=== PATIENT | female | born 1985 | race Caucasian/White ===

== ENCOUNTER 2017-05-05 11:41 | Inpatient (IN) ==
[2017-05-05] MEDS ORDERED: METOCLOPRAMIDE 10 MG/2 ML VIAL IM STA (14:13)
[2017-05-05] MEDS ORDERED: DICYCLOMINE 20 MG/2 ML AMP IM ONE ×3 (14:13→14:32)
[2017-05-05 14:14] LABS: Apearance,Urine CLEAR (Clear); Bilirubin,Urine Negative (Negative); Blood, Urine Negative (Negative); Glucose,Urine (UA) Negative (Negative); Hyaline Casts,Urine 1 /LPF (0-3); Ketones,Urine Negative (Negative); Mucus,Urine Few /LPF (Occasional); Nitrite,Urine Negative (Negative); Protein,Urine Negative; RBC,Urine 1 /HPF (0-4); Squamous Epithelial Cell,Urine Occasional /HPF (0-10); Urine Color Yellow (Yellow); Urine Specific Gravity 1.024 (1.001-1.035); Urine Urobilinogen < 2.0 EU/DL (0.2-1.0)
[2017-05-05] MEDS ORDERED: METOCLOPRAMIDE 10 MG/2 ML VIAL ONE (14:31)
[2017-05-05 14:41] LABS: Basophils % 0.1 % (0.0-0.8); Eosinophils # 0.2 10*3/uL (0.0-0.87); Hematocrit 40.5 VOL% (35.7-47.0); Hemoglobin 13.8 GM/DL (12.0-16.0); Immature Granulocytes % 0.4 %; Immature Granulocytes Absolute 0.06 #; Lymphocytes # 1.3 10*3/uL (1.4-4.0); Lymphocytes % 8.4 % (21.3-54.2); Mean Corpuscular HGB Conc 34.1 GM/DL (32-36); Mean Corpuscular Hemoglobin 31 PG (27-34); Mean Corpuscular Volume 91.6 FL (87-102); Mean Platelet Volume 9.8 FL (9.6-12.0); Monocytes # 0.9 10*3/uL (0.11-0.8); Neutrophils # 12.6 10*3/uL (1.4-7.4); Neutrophils % 84.1 % (38.7-73.9); Platelet Count 229 T/CUMM (130-400); Red Blood Count 4.42 MC/CUMM (3.8-5.5); Red Cell Distribution Width 13.2 % (9.3-17.3)
[2017-05-05 14:57] LABS: Calcium 9.1 MG/DL (8.5-10.1); Osmolality,Calculated 277.4 MOS/KG (273-304); Potassium 3.9 MMOL/L (3.5-5.1)
[2017-05-05] MEDS ORDERED: metroNIDAZOLE INJ 500 MG in PREMIX 1 EACH IV STA (17:14)
[2017-05-05] MEDS ORDERED: cefTRIAXone 1,000 MG in SODIUM CHLORIDE 0.9% 100 ML IV STA (17:14)
[2017-05-05] MEDS ORDERED: SODIUM CHLORIDE 0.9% 1,000 ML IV STA (17:19)
[2017-05-05] MEDS ORDERED: HYDROmorphone 2 MG/1 ML VIAL IV STA (17:19)
[2017-05-05] MEDS ORDERED: cefTRIAXone 1,000 MG VIAL ONE (17:19)
[2017-05-05] MEDS ORDERED: metroNIDAZOLE 500 MG/100 ML PREMIX IV ONE (17:32)
[2017-05-05] MEDS ORDERED: ALUMINUM/MAGNES/SIMETH MAX STR 30 ML UDCUP PO PRN (17:44)
[2017-05-05] MEDS ORDERED: AZTREONAM 1,000 MG in SODIUM CHLORIDE 0.9% 100 ML IV SCH (18:00)
[2017-05-05] MEDS ORDERED: ONDANSETRON 4 MG/2 ML VIAL ONE (18:41)
[2017-05-05] MEDS ORDERED: HYDROmorphone 2 MG/1 ML VIAL ONE (18:41)
[2017-05-05] MEDS: ONDANSETRON 4 MG/2 ML VIAL IV PRN (18:47)
[2017-05-05] MEDS: metroNIDAZOLE INJ 500 MG in PREMIX 1 EACH IV SCH ×2 (19:56→23:00)
[2017-05-05] MEDS: HYDROmorphone 2 MG/1 ML VIAL IV PRN (21:35)
[2017-05-05] MEDS: DOCUSATE SODIUM 100 MG CAPSULE PO SCH (21:53)
[2017-05-05] MEDS: AZTREONAM 1,000 MG in SYRINGE 1 EACH IV SCH (21:53)
[2017-05-05] MEDS: DEXTROSE 5% NACL 0.45% 1,000 ML IV SCH (21:54)
[2017-05-05] MEDS ORDERED: SODIUM CHLORIDE 0.9% 50 ML IV ONE (22:52)
[2017-05-05] MEDS: cefOXitin 2,000 MG in SYRINGE 1 EACH IV SCH (23:35)
[2017-05-06] MEDS: oxyCODONE/ACETAMINOPHEN 5-325 MG TABLET PO PRN ×2 (00:01→18:04)
[2017-05-06] MEDS ORDERED: SODIUM CHLORIDE 0.9% 50 ML IV ONE (04:41)
[2017-05-06 09:54] LABS: Albumin 3.2 G/DL (3.4-5.0); Bilirubin,Total 0.9 MG/DL (0.2-1.0); Calcium 8.6 MG/DL (8.5-10.1); Osmolality,Calculated 270.8 MOS/KG (273-304); Potassium 3.7 MMOL/L (3.5-5.1); Total Protein 6.3 G/DL (6.4-8.3)
[2017-05-06 10:01] LABS: Basophils % 0.2 % (0.0-0.8); Eosinophils % 0.3 % (0.00-10.9); Hematocrit 37.1 VOL% (35.7-47.0); Hemoglobin 12.5 GM/DL (12.0-16.0); Immature Granulocytes % 0.8 %; Immature Granulocytes Absolute 0.12 #; Lymphocytes # 1.6 10*3/uL (1.4-4.0); Lymphocytes % 10.7 % (21.3-54.2); Mean Corpuscular HGB Conc 33.7 GM/DL (32-36); Mean Corpuscular Hemoglobin 31 PG (27-34); Mean Corpuscular Volume 92.5 FL (87-102); Mean Platelet Volume 10.7 FL (9.6-12.0); Monocytes % 6.9 % (1.7-12.7); Neutrophils # 11.9 10*3/uL (1.4-7.4); Neutrophils % 81.1 % (38.7-73.9); Platelet Count 189 T/CUMM (130-400); Red Blood Count 4.01 MC/CUMM (3.8-5.5); Red Cell Distribution Width 13.1 % (9.3-17.3); White Blood Count 14.7 T/CUMM (4-12)
[2017-05-06] MEDS: DEXTROSE 5% NACL 0.45% 1,000 ML IV SCH ×3 (10:10→18:10)
[2017-05-06] MEDS: AZTREONAM 1,000 MG in SYRINGE 1 EACH IV SCH ×3 (10:11→20:00)
[2017-05-06] MEDS: cefOXitin 2,000 MG in SYRINGE 1 EACH IV SCH ×3 (10:11→17:30)
[2017-05-06] MEDS: DOCUSATE SODIUM 100 MG CAPSULE PO SCH ×2 (10:11→20:03)
[2017-05-06] MEDS: metroNIDAZOLE INJ 500 MG in PREMIX 1 EACH IV SCH ×4 (10:11→23:34)
[2017-05-06] MEDS: PANTOPRAZOLE 40 MG VIAL IV SCH (10:12)
[2017-05-06] MEDS: HYDROmorphone 2 MG/1 ML VIAL IV PRN (13:55)
[2017-05-06] MEDS: ACETAMINOPHEN 325 MG TABLET PO PRN (21:44)
[2017-05-07] MEDS: cefOXitin 2,000 MG in SYRINGE 1 EACH IV SCH ×4 (00:26→18:49)
[2017-05-07] MEDS: ONDANSETRON 4 MG/2 ML VIAL IV PRN ×3 (01:56→18:43)
[2017-05-07] MEDS: DEXTROSE 5% NACL 0.45% 1,000 ML IV SCH ×3 (02:14→18:00)
[2017-05-07] MEDS: AZTREONAM 1,000 MG in SYRINGE 1 EACH IV SCH ×3 (05:56→21:04)
[2017-05-07] MEDS: metroNIDAZOLE INJ 500 MG in PREMIX 1 EACH IV SCH ×4 (06:00→23:35)
[2017-05-07] MEDS: ACETAMINOPHEN 325 MG TABLET PO PRN ×3 (07:47→21:04)
[2017-05-07 08:46] LABS: Basophils % 0.1 % (0.0-0.8); Eosinophils # 0.1 10*3/uL (0.0-0.87); Eosinophils % 0.7 % (0.00-10.9); Hematocrit 34.1 VOL% (35.7-47.0); Hemoglobin 11.4 GM/DL (12.0-16.0); Immature Granulocytes % 0.5 %; Immature Granulocytes Absolute 0.06 #; Lymphocytes # 0.9 10*3/uL (1.4-4.0); Lymphocytes % 7.7 % (21.3-54.2); Mean Corpuscular HGB Conc 33.4 GM/DL (32-36); Mean Corpuscular Hemoglobin 31 PG (27-34); Mean Corpuscular Volume 92.2 FL (87-102); Mean Platelet Volume 10.7 FL (9.6-12.0); Monocytes # 0.7 10*3/uL (0.11-0.8); Monocytes % 5.3 % (1.7-12.7); Neutrophils # 10.4 10*3/uL (1.4-7.4); Neutrophils % 85.7 % (38.7-73.9); Platelet Count 179 T/CUMM (130-400); Red Cell Distribution Width 13.2 % (9.3-17.3); White Blood Count 12.2 T/CUMM (4-12)
[2017-05-07] MEDS: PANTOPRAZOLE 40 MG VIAL IV SCH (09:08)
[2017-05-07 09:10] LABS: Albumin 2.8 G/DL (3.4-5.0); Bilirubin,Total 0.5 MG/DL (0.2-1.0); Calcium 8.2 MG/DL (8.5-10.1); Osmolality,Calculated 275.4 MOS/KG (273-304); Potassium 3.5 MMOL/L (3.5-5.1); Total Protein 5.7 G/DL (6.4-8.3)
[2017-05-07] MEDS: DOCUSATE SODIUM 100 MG CAPSULE PO SCH ×2 (09:14→21:11)
[2017-05-08] MEDS: ONDANSETRON 4 MG/2 ML VIAL IV PRN (00:54)
[2017-05-08] MEDS: cefOXitin 2,000 MG in SYRINGE 1 EACH IV SCH ×2 (00:55→05:23)
[2017-05-08] MEDS: DEXTROSE 5% NACL 0.45% 1,000 ML IV SCH ×2 (03:46→09:26)
[2017-05-08] MEDS: AZTREONAM 1,000 MG in SYRINGE 1 EACH IV SCH (04:25)
[2017-05-08] MEDS: metroNIDAZOLE INJ 500 MG in PREMIX 1 EACH IV SCH (05:23)
[2017-05-08] MEDS: DOCUSATE SODIUM 100 MG CAPSULE PO SCH ×2 (09:39→21:39)
[2017-05-08] MEDS: CIPROFLOXACIN 500 MG TABLET PO SCH ×2 (09:51→21:39)
[2017-05-08] MEDS: ACETAMINOPHEN 325 MG TABLET PO PRN ×2 (11:58→19:44)
[2017-05-08] MEDS: metroNIDAZOLE 500 MG TABLET PO SCH ×2 (12:01→21:39)
[2017-05-09 06:22] LABS: Eosinophils % 0.3 % (0.00-10.9); Hematocrit 33.1 VOL% (35.7-47.0); Hemoglobin 10.9 GM/DL (12.0-16.0); Immature Granulocytes % 0.6 %; Immature Granulocytes Absolute 0.02 #; Lymphocytes # 0.5 10*3/uL (1.4-4.0); Lymphocytes % 15.9 % (21.3-54.2); Mean Corpuscular HGB Conc 32.9 GM/DL (32-36); Mean Corpuscular Hemoglobin 30 PG (27-34); Mean Corpuscular Volume 92.5 FL (87-102); Mean Platelet Volume 10.3 FL (9.6-12.0); Monocytes # 0.6 10*3/uL (0.11-0.8); Monocytes % 16.5 % (1.7-12.7); Neutrophils # 2.3 10*3/uL (1.4-7.4); Neutrophils % 66.7 % (38.7-73.9); Platelet Count 178 T/CUMM (130-400); Red Blood Count 3.58 MC/CUMM (3.8-5.5); Red Cell Distribution Width 13.4 % (9.3-17.3); White Blood Count 3.4 T/CUMM (4-12)
[2017-05-09 06:57] LABS: Band Neutrophils 1 % (0-10); Eosinophils 1 % (0-10); Hypochromasia 1+; Lymphocytes 13 % (20-55); Macrocytosis 1+; Platelet Estimate Adequate; Segmented Neutrophils 72 % (50-85); Total Cells Counted 100
[2017-05-09 07:59] VITALS: BP 110/55
[2017-05-09] MEDS: metroNIDAZOLE 500 MG TABLET PO SCH (09:28)
[2017-05-09] MEDS: DOCUSATE SODIUM 100 MG CAPSULE PO SCH (09:28)
[2017-05-09] MEDS: CIPROFLOXACIN 500 MG TABLET PO SCH (09:28)
== END 2017-05-09 10:25 | disposition home or self-care (01) | DRG 392 ==
LOC: N.ED 11:41 → N.EDINP 17:44 → N.3E 19:12
PROVIDERS: ADMIT Specialist; ATTEND Specialist